=== PATIENT | female | born 1965 | race Caucasian/White ===

== ENCOUNTER 2020-09-26 12:31 | Emergency (ER) | payer MEDICAID ==
[~2020-09-26] VITALS: Ht 170.2 cm; Wt 61.2 kg
[2020-09-26 12:38] VITALS: BP_SYST 106
[2020-09-26] MEDS ORDERED: CYCL-10 PO (14:27)
[2020-09-26] MEDS ORDERED: IBUP-1969 PO (14:27)
[2020-09-26 14:35] VITALS: BP_SYST 106
== END 2020-09-26 14:35 | disposition home or self-care (01) ==
LOC: SED 12:31
DX: S39.012A Strain of muscle, fascia and tendon of lower back, initial encounter (principal); F07.81 Postconcussional syndrome; Z79.899 Other long term (current) drug therapy; V49.49XA Driver injured in collision with other motor vehicles in traffic accident, initial encounter; Y93.89 Activity, other specified; Y92.89 Other specified places as the place of occurrence of the external cause; Y99.8 Other external cause status
CPT/HCPCS: 72100-TC; 99283